=== PATIENT | male | born 1955 | race Caucasian/White ===

== ENCOUNTER 2023-08-31 06:09 | Inpatient (IN) | payer MEDICARE, OTHER, SELFPAY ==
[2023-08-31] VITALS (24 sets, daily range): BP systolic 98–164; BP diastolic 63–100; PULSE 67–107; RESP 12–23; TEMP 35.5–37.5; O2SAT 92–100; BMI 26.2
--- NOTE | 2023-08-31 06:17 | PC.NURSE ---
Call Stemi Alert at 0601. Call [facility] Ems at 0602. Nurse Elisa Ku at 0603. Katie Grover at 0603. Nat at 0611. Call Interventional Cardiology at 0605.
--- NOTE | 2023-08-31 06:18 | ECG_ITS ---
Measurements Intervals [place] Rate: 88 P: 72 MS: 152 QRS: 43 QRSD: 93 T: 55 QT: 396 QTc: 480 Interpretive Statements SINUS RHYTHM WITH OCCASIONAL VENTRICULAR PREMATURE COMPLEXES BASELINE ARTIFACT LOW QRS VOLTAGE IN PRECORDIAL LEADS [QRS DEFLECTION < 1.0 mV IN CHEST LEADS] BORDERLINE ECG NO PREVIOUS ECG AVAILABLE FOR COMPARISON Electronically Signed On 08-31-2023 16:22:16 DIP UNIT OPERATOR by Gorge Dennison M.D.
--- NOTE | 2023-08-31 06:19 | PC.NURSE ---
0618 4,000 units of heparin administered via IV push by this RN per Dr. Talbot verbal order.
--- NOTE | 2023-08-31 06:22 | ED.CHESTPAIN ---
HPI - Chest Pain General Chief Complaint: Chest Pain Stated Complaint: STEMI History of Present Illness HPI narrative: 68-year-old male with no previous cardiac history presenting to the emergency department for evaluation chest pain. Patient reports chest pain started about 3:00 a.m. he went to his neighbor's house at approximately 5:00 a.m. due to the pain and EMS was called to the neighbor's house. During transport EMS felt that the patient was having an acute STEMI so a code STEMI was called in the field. Patient was treated with aspirin nitro and Zofran. When patient was 1st picked up he is complaining of 8/10 chest pain. Upon arrival to the emergency department patient states his pain had resolved. Patient was still complaining of some nausea he was treated with additional Zofran. Related Data Home Medications Medication Instructions Recorded Confirmed ferrous sulfate 324 mg (65 mg 324 mg PO DAILY 08/31/23 08/31/23 iron) tablet,delayed release paroxetine HCl 30 mg tablet 30 mg PO DAILY 08/31/23 08/31/23 rivaroxaban 20 mg tablet 20 mg PO DAILY 08/31/23 08/31/23 Allergies Allergy/AdvReac Type Severity Reaction Status Date / Time No Known Allergies Allergy Unverified 05/14/19 15:02 Review of Systems Review of Systems: All systems reviewed & are unremarkable except as noted in HPI and below PMFSH Family History Family History Mother Family history of hypercholesterolemia Hypertension Family history of kidney disease Father Family history of lung cancer, Onset Age: 69 Social History Social History Smoking status: Never smoker Second hand tobacco smoke exposure: No Alcohol intake: never Substance use: current Substance use type: marijuana Do You Feel Safe in your Home?: Yes Lack of Transportation: No Lack of Food: Never True Current Housing: I Have Housing Concerned About Future Housing: No Difficulty Paying Gas/Electric Bills: No Difficulty Paying for Meds: No Currently Unemployed: No Education: Trade/Vocational Certificate Difficulty w/ Childcare or Family Care: No Spiritual care concerns: No Exam Narrative: APPEARANCE: Ill-appearing HEAD: normocephalic, atraumatic. EYES: PERRLA/EOMI, conjunctivae clear. NOSE: Normal no drainage EARS:TMS clear with good light reflex. THROAT: Pharynx clear, no exudate. NECK: Supple. No adenopathy, no masses. RESPIRATORY: Airway patent, respirations nonlabored. Clear to auscultation bilaterally, no rales, rhonchi, wheezing. CARDIOVASCULAR: Regular rate and rhythm without murmurs rubs or gallops. ABDOMINAL: Soft, nontender, nondistended, normal bowel sounds MUSCULOSKELETAL: Moves all extremities. Strength/ROM intact, No edema, No calf tenderness. NEURO: Alert. Cranial nerves II through XII intact. Grossly intact SKIN: Warm, dry. Normal Color Course Course Emergency Course: 68-year-old male presenting to emergency department for evaluation of chest pain. Field EKG and her EKG were shared with Cardiology, Dr De Dios. Cardiology ordered for those any use heparin and patient was prepped for the union laborer. Patient was updated on the results of the EKG and planned for the union laborer. Prior to transfer to the union laborer patient had a heart rate in the 70s that was sinus with occasional PVCs, blood pressure 120/65 and saturating at 98% on room air. Vital Signs Vital signs: Vital Signs Temperature 96 F L 08/31/23 06:07 Pulse Rate 92 08/31/23 06:07 Respiratory Rate 23 H 08/31/23 06:07 Blood Pressure 122/79 08/31/23 06:07 Pulse Oximetry 99 08/31/23 06:07 Oxygen Delivery Room Air 08/31/23 06:07 Temperature 98.5 F 09/01/23 07:57 Pulse Rate 77 09/01/23 08:48 Respiratory Rate 15 09/01/23 08:48 Blood Pressure 144/91 H 09/01/23 08:48 Pulse Oximetry 95 09/01/23 09:10 Oxygen Delivery Ro
[2023-08-31 06:28] LABS: Basophils Absolute Auto 0.1 K/mm3 (0.0-0.1); Basophils Percent Auto 0.3 % (0.2-1.2); Eosinophils Absolute Auto 0.4 K/mm3 (0-0.3); Eosinophils Percent Auto 2.7 % (0-4.4); Hematocrit 40.9 % (42.0-52.0); Hemoglobin 14.3 g/dL (14.0-18.0); Immature Granulocyte Absolute 0.05 K/mm3 (0.00-0.031); Immature Granulocyte Percent A 0.3 % (0-0.5); Lymphocytes Absolute Auto 6.88 K/mm3 (0.9-3.2); Lymphocytes Percent Auto 46.9 % (18.3-44.2); Mean Corpuscular Hemoglobin 33.2 pg (26-34); Mean Corpuscular Volume 94.9 fl (80-100); Mean Platelet Volume 10.5 fl (7.4-10.4); Monocytes Absolute Auto 1.3 K/mm3 (0.1-0.6); Monocytes Percent Auto 8.9 % (2.6-8.5); Neutrophils Percent Auto 40.9 % (45.5-73.1); Platelet Count Result 249 k/mm3 (150-375); Red Blood Count 4.31 M/mm3 (4.6-6.20); Red Cell Distribution Width 12.4 % (11.5-14.5); White Blood Count 14.7 K/mm3 (4.5-10.0)
[2023-08-31] MEDS: SODIUM CHLORIDE 0.9% IV 1,000 ML 999 ML IV CONT (06:30)
[2023-08-31 06:39] LABS: Prothrombin Time 14.1 Seconds (11.1-14.7)
[2023-08-31 06:40] LABS: Partial Thromboplastin Time 26.6 SECONDS (22.3-36.8)
--- NOTE | 2023-08-31 06:41 | PC.NURSE ---
0637 mill laborer RN's Elisa and Katie arrive at bedside, report given by this RN. pt left ED to the cook house laborer at 0640.
[2023-08-31 06:42] LABS: Alanine Aminotransferase 20 U/L (6-50); Albumin Level 4.1 g/dL (3.5-5.1); Alkaline Phosphatase 79 U/L (38-126); Anion Gap 13 mmol/L (8-16); Aspartate Amino Transferase 28 U/L (17-59); Bilirubin,Total 0.5 mg/dL (0.2-1.3); Blood Urea Nitrogen 18 mg/dL (9-20); Calcium 9.7 mg/dL (8.4-10.2); Carbon Dioxide 18 mmol/L (22-30); Chloride 108 mmol/L (98-107); Cholesterol 222 mg/dL (0-200); Estimated CRCL calculation 54 ml/min; Estimated Glomerular Filt Rate > 60; Glucose 212 mg/dL (65-110); HDL Direct 27 mg/dL; Sodium 139 mmol/L (137-145); Triglycerides 208 mg/dL (<150)
[2023-08-31 06:53] LABS: LDL Cholesterol Direct 156 mg/dL
[2023-08-31 06:56] LABS: Troponin I 0.025 ng/mL (0.000-0.034)
--- NOTE | 2023-08-31 07:44 | WPDMODSED ---
Moderate Sedation Note-Pt Data Patient Data Diagnosis: stemi Present Complaint: chest pain Procedure to be performed/Plan: coronary angio Allergies Allergy/AdvReac Type Severity Reaction Status Date / Time No Known Allergies Allergy Unverified 05/14/19 15:02 Home Medications Medication Instructions Recorded Confirmed Type simvastatin 20 mg tablet 20 mg PO DAILY #90 tabs 05/14/19 11/14/20 Rx diazepam 5 mg tablet 5 mg PO BID #7 tabs 11/14/20 11/14/20 Rx levothyroxine 75 mcg tablet 75 mcg PO DAILY #90 tabs 08/18/21 Rx pantoprazole 40 mg tablet,delayed See Rx Instructions .Route 10/12/21 Rx release .COMPLEX #90 tabs paroxetine HCl 20 mg tablet (Paxil) 20 mg PO DAILY #90 tabs 10/27/21 Rx naproxen 500 mg tablet 500 mg PO BID #180 tabs 02/22/22 Rx Sedation/Anesthesia: No previous sedation/anesthesia problems (including family history). [facility] Family History Family History Mother Family history of hypercholesterolemia Hypertension Family history of kidney disease Father Family history of lung cancer, Onset Age: 69 Social History Social History Smoking status: Never smoker Second hand tobacco smoke exposure: No Alcohol intake: never Mod Sed Physical Exam Physical Exam Pre Procedural Exam: Normal: Appearance, Eyes, Ears, Nose, Neck, Throat, Airway, Lungs, Heart Size, Heart Rate, Heart Rhythm, Neuro Exam, Abdomen, Liver, Kidneys, Spleen, Breasts, Genitalia, Extremities and Skin Hours since solid foods: 8 Hours since liquid intake: 8 Mallampati Classification: class 1 Internal Medicine - PN: Obj Da Vital Signs Vital Signs: Vital Signs - 24 hr 08/31/23 06:07 08/31/23 06:21 08/31/23 06:31 Temperature 35.5 C L Pulse Rate 92 74 Respiratory Rate 23 H Blood Pressure 122/79 Pulse Oximetry 99 100 Oxygen Delivery Room Air Room Air Labs 08/31/23 06:22 08/31/23 06:22 Labs: Laboratory Results - last 24 hr 08/31/23 06:22 WBC 14.7 H RBC 4.31 L Hgb 14.3 Hct 40.9 L MCV 94.9 MCH 33.2 MCHC 35.0 RDW 12.4 Plt Count 249 MPV 10.5 H Immature Gran % (Auto) 0.3 Neut % (Auto) 40.9 L Lymph % (Auto) 46.9 H [place] % (Auto) 8.9 H Eos % (Auto) 2.7 Baso % (Auto) 0.3 Lymph # (Auto) 6.88 H [place] # (Auto) 1.3 H Eos # (Auto) 0.4 H Baso # (Auto) 0.1 Abs Immat Gran (auto) 0.05 H Absolute Neuts (auto) 6.0 Absolute Nucleated RBC 0.0 Nucleated RBC % 0.0 PT 14.1 INR 1.0 APTT 26.6 Sodium 139 Potassium 3.0 L Chloride 108 H Carbon Dioxide 18 L Anion Gap 13 BUN 18 Creatinine 1.10 Estim Creat Clear Calc 54 Estimated GFR > 60 Glucose 212 H Calcium 9.7 Total Bilirubin 0.5 AST 28 ALT 20 Alkaline Phosphatase 79 Troponin I 0.025 Total Protein 7.0 Albumin 4.1 Triglycerides 208 H Cholesterol 222 H LDL Cholesterol Direct 156 HDL Direct 27 Blood Type A Positive Antibody Screen Negative ASA Classification/Sedation ASA Classification/Sedation ASA Class: I Emergent: No Risks: Risks, benefits and alternatives explained and patient/family accepted plan for sedation. Patient re-evaluated immediately prior to sedation.
--- NOTE | 2023-08-31 07:45 | WPDCARDPROC ---
Cardiac Cath Procedure Note Date of procedure:: 08/31/23 Performing physician:: Johnathan De Dios MD Indication:: Stemi Brief clinical history:: this 68-year-old patient with history of levothyroxine and will take Xarelto for thromboembolism presents here to the hospital chest pain that started 3:00 a.m.. Upon arrival to EMS EKG shows ST-elevation in lead 1 and aVL. some anterior elevation as well. Patient was shaking and feeling very cold. Denies shortness of breath, fever . Procedure Procedure performed:: 1-Moderate sedation that started at 7:02 a.m. and ended at 7:34 a.m. total duration 32 minutes using 2mg of Versed and 25mcg fentanyl. The registered nurse was myrna feldman 2-Selective left and right coronary angiogram. 3-Left heart catheterization with measurement of LVEDP and measurement of gradient across aortic valve. 4- LV angiogram. 5- deployment of drug eluting stent orsiro 2.75 x 18 covering mid diagonal branch. deployment done under 14 atmospheres corresponding to size 2.9 mm 4-Right common femoral arterial angiogram. 5-Deployment of 6 Swedish Angio-Seal. Sedation/Medication given:: Moderate sedation. Access site:: Right common femoral artery. Estimated blood loss:: 10cc Procedure note:: After informed consent patient was brought in to agricultural labor camp manager with the was draped and prepped in usual manner. Moderate sedation was given and the right groin was infiltrated using 1% lidocaine. Five Swedish sheath was obtained using micropuncture needle and the modified Seldinger technique. Selective left coronary angiogram was done using JL4 catheter with the tip of the catheter placed in the left main coronary artery. after that, 6 Swedish guide catheter CLS 3.5 was advanced and engaged the left main. Coronary wire minamo was advanced to distal diagonal branch and then balloon angioplasty done using 2.5 x 15 with 3 inflations each under normal pressure for 15 seconds. Then deployed drug-eluting stent orsiro2.75 x 18 and deployed in the mid diagonal branch under 14 atmospheres for 25 seconds. Selective right coronary angiogram was done using JR4 catheter with the tip of the catheter placed to the right coronary artery. After that 5 Swedish pigtail catheter was advanced across the aortic valve into the left ventricle with measurement of LVEDP and measurement of gradient across aortic valve. LV angiogram was done as well. Right common femoral arterial angiogram was done. Findings:: 1- left coronary artery is a large artery that divides into large LAD, large circumflex artery. Left main is Minimal irregularities. 2- left anterior descending artery is a large artery that runs and wraps around the apex. proximal lesion about 30%. Large diagonal branch with mid 99%. 3- leftcircumflex artery is a large artery . Has minimal irregularities and before bifurcation with large OM1 there is about 30%. 4- right coronary artery is Large artery and dominant with diffuse minimal irregularities. 5- LVEDP was 15 Mm Hgand no gradient across aortic valve. 6- LV angiogram shows wall motion abnormality involving the anterior, anterolateral, apical inferior dsouza, ejection fraction 35%. 6- opening arterial pressure was 160/80 and closing pressure was 145/96 7- right femoral artery angiogram shows no significant disease in the right common femoral artery. Conclusion:: - high-grade stenosis diagonal branch status post stenting. Assessment and Plan Assessment and plan (1) STEMI (ST elevation myocardial infarction): Code(s): I21.3 - ST elevation (STEMI) myocardial infarction of unspecified site Status: Acute Plan continue aspirin and Brilinta. - aggressive risk factor modification for CAD - lipid panel and screening for diabetes
--- NOTE | 2023-08-31 07:52 | PM.IMHP ---
H&P: HPI History of Present Illness Date/Time: 08/31/23 07:52 Chief Complaint: chest pain Narrative: 68-year-old patient with history of hypothyroidism, thromboembolism on Xarelto, depression, hyperlipidemia who presents the hospital with chest pain that started at 3:00 a.m.. Upon arrival EMS EKG showed ST-elevation involving leads 1 and [address]VL and some ST elevation in anterior leads as well. Denies shortness of breath. Review of Systems Review of Systems: All systems reviewed & are unremarkable except as noted in HPI and below Constitutional: Constitutional: Denies chills, Denies fatigue, Denies fever(s), Denies headache(s) and Denies snoring Eyes: Eyes: Denies eye discharge and Denies loss of vision ENT: Denies dizziness, Denies headache(s), Denies nasal discharge and Denies sore throat Cardiovascular: Cardiovascular: Reports as per HPI, Reports chest pain, Denies syncope, Denies rapid heart rate, Denies leg edema, Denies dyspnea, Denies dyspnea on exertion, Denies orthopnea and Denies paroxysmal nocturnal dyspnea Respiratory: Respiratory: Denies chest congestion, Denies cough, Denies dyspnea, Denies dyspnea on exertion, Denies snoring and Denies wheezing Gastrointestinal: Gastrointestinal: Denies abdominal pain, Denies diarrhea, Denies nausea and Denies vomiting Genitourinary: Genitourinary: Denies hematuria, Denies dysuria, Denies flank pain and Denies urinary frequency Musculoskeletal: Musculoskeletal: Denies myalgias, Denies arthralgias and Denies joint swelling Neurologic: Denies Abnormal speech present, Denies dizziness, Denies syncope, Denies headache(s), Denies focal weakness and Denies loss of vision Psychiatric: Psychiatric: Denies anxiety and Denies depression Endocrine: Endocrine: Denies cold intolerance, Denies fatigue and Denies heat intolerance Hematologic/Lymphatic: Hematologic/Lymphatic: Denies easy bleeding and Denies easy bruising Allergic/Immunologic: Allergic/Immunologic: Denies urticaria and Denies wheezing PMFSH Family History Family History Mother Family history of hypercholesterolemia Hypertension Family history of kidney disease Father Family history of lung cancer, Onset Age: 69 Social History Social History Smoking status: Never smoker Second hand tobacco smoke exposure: No Alcohol intake: never Meds Home Medications and Allergies Home Medications Medication Instructions Recorded Confirmed Type simvastatin 20 mg tablet 20 mg PO DAILY #90 tabs 05/14/19 11/14/20 Rx diazepam 5 mg tablet 5 mg PO BID #7 tabs 11/14/20 11/14/20 Rx levothyroxine 75 mcg tablet 75 mcg PO DAILY #90 tabs 08/18/21 Rx pantoprazole 40 mg tablet,delayed See Rx Instructions .Route 10/12/21 Rx release .COMPLEX #90 tabs paroxetine HCl 20 mg tablet (Paxil) 20 mg PO DAILY #90 tabs 10/27/21 Rx naproxen 500 mg tablet 500 mg PO BID #180 tabs 02/22/22 Rx Allergies Allergy/AdvReac Type Severity Reaction Status Date / Time No Known Allergies Allergy Unverified 05/14/19 15:02 Vital Signs Vital Signs - 24 hr 08/31/23 06:07 08/31/23 06:21 08/31/23 06:31 Temperature 35.5 C L Pulse Rate 92 74 Respiratory Rate 23 H Blood Pressure 122/79 Pulse Oximetry 99 100 Oxygen Delivery Room Air Room Air Exam Const: General: cooperative, healthy appearing, comfortable, no acute distress, well developed and well nourished Nutritional Appearance: well nourished Orientation/consciousness: patient oriented x3 HENMT: Head: normal to inspection, normocephalic and atraumatic Ears: hearing grossly normal bilaterally and external ears normal Face/Nose/Sinus: Normal external nose present, Normal nares present, normal facial exam and No erythema Face and sinus: normal facial exam and no erythema Mouth: Yes moist mucous membranes and No lip abnormal Throat: uvula midline Eyes:
--- NOTE | 2023-08-31 08:07 | ECG_ITS ---
Measurements Intervals [place] Rate: 77 P: 74 DE: 151 QRS: 38 QRSD: 94 T: 68 QT: 395 QTc: 447 Interpretive Statements SINUS RHYTHM BASELINE ARTIFACT LOW QRS VOLTAGE IN EXTREMITY LEADS [QRS DEFLECTION < 0.5 mV IN LIMB LEADS] BORDERLINE ECG COMPARED TO ECG 08/31/2023 06:12:04 NO SIGNIFICANT CHANGES Electronically Signed On 08-31-2023 16:24:36 EMPLOYMENT COUNSELOR by Gorge Dennison M.D.
--- NOTE | 2023-08-31 08:07 | ECHO_ITS ---
Patient Info Name: Chinedu Atkins Age: 68 years : 1955 Gender: Male Ht: 68 in Wt: 172 lbs BSA: 1.95 m2 HR: 111 bpm BP: 160 / 91 mmHg Technical Quality: Fair Exam Date: 08/31/2023 2:30 PM Exam Location: Echo Lab Patient Status: Inpatient Admit Date: 08/31/2023 Staff Ordering Physician: Johnathan De Dios MD Supervising Deputy: Azra Machado RDCS Attending Provider: Johnathan De Dios MD Referring Physician: Judd Talbot MD; Exam Type: CA echo doppler color flow Study Info Complete two-dimensional, color flow and Doppler transthoracic echocardiogram is performed. Summary 1. Technically difficult study. Patient declined Definity. 2. Left ventricular chamber dimension is normal. 3. Left ventricular systolic function is moderately reduced, estimated at 35-40%. 4. There is hypokinesis of the mid inferolateral wall, mid anteroseptum, mid inferoseptum, mid anterolateral wall. The apex appears akinetic. 5. The left ventricular diastolic function is grade I diastolic dysfunction. 6. Right ventricular systolic function is normal. Left Ventricle There is hypokinesis of the mid inferolateral wall, mid anteroseptum, mid inferoseptum, mid anterolateral wall. The apex appears akinetic. Left ventricular chamber dimension is normal. Left ventricular systolic function is moderately reduced, estimated at 35-40%. There is no increased left ventricular wall thickness. The left ventricular diastolic function is grade I diastolic dysfunction. Right Ventricle Right ventricular chamber dimension is normal. Right ventricular systolic function is normal. Left Atria Left atrial chamber dimension is normal. Right Atria Right atrial chamber dimension is normal. Atrial Septum Intact interatrial septum visualized by color flow imaging. Aortic Valve The aortic valve is not well visualized. There is no aortic valve stenosis. There is no aortic valve regurgitation. Pulmonic Valve The pulmonic valve is not well visualized. Mitral Valve There is trace mitral valve regurgitation. The mitral valve annulus is mildly calcified. Tricuspid Valve There is trace tricuspid valve regurgitation. Pericardium/Pleural There is no pericardial effusion. Inferior Vena Cava Normal inferior vena cava with >50% collapse upon inspiration consistent with normal right atrial pressure, 3 mmHg. Aorta The aortic root size at the sinus of Valsalva is normal. Left Ventricular Outflow Tract Name Value Normal LVOT 2D LVOT Diameter 2.0 cm LVOT Doppler LVOT Peak Gradient 6 mmHg LVOT Mean Gradient 3 mmHg LVOT VTI 21 cm LVOT VTI/AV VTI Ratio 1.0 LVOT Stroke Volume 62 ml LVOT CO 5.8 l/min LVOT CI 3.0 l/min/m2 Pulmonic Valve Name Value Normal RVOT Doppler RVOT Peak Gradient
[2023-08-31] MEDS: methylPREDNISolone SOD SUCC 125 MG VIAL IV PUSH (08:19)
--- NOTE | 2023-08-31 08:20 | WPDCNINT ---
Assessment and Plan Assessment and plan (1) STEMI (ST elevation myocardial infarction): Code(s): I21.3 - ST elevation (STEMI) myocardial infarction of unspecified site Status: Acute Assessment and Plan: 08/31: Patient presented with chest pain, 8/10 intensity, EMS was called and upon their arrival EKG reviewed STEMI, a code STEMI was called. Patient was given aspirin, nitroglycerin and Zofran -patient was taken to the clinical lab assistant where he was found to have a 99% occlusion of his diagonal branch of the LAD, status post PTCA/PCI with SRAVANTHI x1 the diagonal branch. LV gram showed an EF of 35% with wall motion abnormalities involving anterior, anterolateral, apical inferior dsouza -cardiology following the patient closely has been started on aspirin, Brilinta -start atorvastatin (2) Hypothyroidism (acquired): Code(s): E03.9 - Hypothyroidism, unspecified Status: Acute Assessment and Plan: Continue levothyroxine (3) Hyperlipidemia LDL goal <130: Code(s): E78.5 - Hyperlipidemia, unspecified Status: Acute Assessment and Plan: Will add statin (4) Current moderate episode of major depressive disorder without prior episode: Code(s): F32.1 - Major depressive disorder, single episode, moderate Status: Acute Assessment and Plan: Continue home Paxil (5) Thromboembolism: Code(s): I74.9 - Embolism and thrombosis of unspecified artery Status: Acute Assessment and Plan: Hold Xarelto for now, will restart when okay with Cardiology Plan DVT prophylaxis: Status post cardiac catheterization Stress ulcer prophylaxis: Protonix, home medication Nutrition: Heart healthy diet Code Status: Full code Critical Care Time Spent: 43 minutes Due to a high probability of clinically significant, life threatening deterioration, the patient required my highest level of preparedness to intervene emergently and I personally spent this critical care time directly and personally managing the patient. This critical care time included obtaining a history; examining the patient; pulse oximetry; ordering and review of studies; arranging urgent treatment with development of a management plan; evaluation of patient's response to treatment; frequent reassessment; and discussions with other providers. It was exclusive of separately billable procedures and treating other patients and teaching time. Please see Assessment and Plan section and the rest of the note for further information on patient assessment and treatment This dictation may have been done utilizing a voice recognition system. Attempts have been made to correct errors. However, there may be uncorrected grammatical, spelling, and recognitions errors present. Net Technical Architect Consult Note Consult date: 08/31/23 Reason for consult: STEMI status post PTCA/PCI with SRAVANTHI x1 to diagonal branch, EF 35% HPI: Chinedu Atkins is a 68 year old male history of depression, hypothyroidism, hyperlipidemia, history, thromboembolism on Xarelto, TIA GERD, Hira's thyroiditis, cervical spine surgery x2, MGUS (monoclonal gammopathy of unknown significance) presented the ED early this morning with complains of chest pain along with nausea. Upon EMS arrival EKG was seen to have acute STEMI, code STEMI was called in the field. Patient was treated with nitroglycerin, aspirin and Zofran. Upon arrival to the ER chest pain had resolved. Patient was taken to cardiac clinical lab assistant where he was found to have a 99% occlusion of the diagonal branch of the LAD. Status post PTCA/PCI with SRAVANTHI x1 to diagonal branch. LV gram showed an EF of 35% with wall motion abnormalities involving anterior, anterolateral, apical inferior dsouza. Patient was transferred to the ICU for further management Patient seen and examined in the ICU upon arrival. Patient is awake, alert, oriented. He is shivering and states he is feeling cold and requests for additional blankets. Patient continu
[2023-08-31] MEDS: SODIUM CHLORIDE 0.9% IV 1,000 ML 125 ML IV CONT (08:22)
--- NOTE | 2023-08-31 08:32 | ADMGEN ---
This patient, Chinedu Atkins, was admitted to Intensive Care Unit-4. Patient/family oriented to hospital policies and general routines including ID bracelet, bed and alarms, visiting hours, pain management, procedures, bathroom and other care routines, personal items, smoking policy, room service/diet, and visiting hours. Information on how to activate the Rapid Response Team has been discussed. Patient/Family are encouraged to report perceived risks to care and to ask questions if they do not understand what they are told or what they should do.
[2023-08-31 08:58] LABS: Cholesterol 225 mg/dL (0-200); HDL Direct 31 mg/dL; Triglycerides 101 mg/dL (<150)
[2023-08-31 09:09] LABS: LDL Cholesterol Direct 162 mg/dL
[2023-08-31 09:13] LABS: Troponin I 0.458 ng/mL (0.000-0.034)
[2023-08-31 09:26] LABS: Hemoglobin A1C 5.9 % (<5.7)
[2023-08-31 10:44] LABS: MRSA (PCR) NOT DETECTED (NOT DETECTE)
[2023-08-31] MEDS: PANTOPRAZOLE 40 MG TABLET PO (12:00)
[2023-08-31] MEDS: ATORVASTATIN 40 MG TABLET 80 MG PO (12:00)
[2023-08-31] MEDS: PARoxetine 10 MG TABLET 30 MG PO (12:00)
[2023-08-31] MEDS: POTASSIUM CHLORIDE 20 MEQ ER TABLET 40 MEQ PO (12:01)
[2023-08-31] MEDS: POTASSIUM CHLORIDE 20 MEQ ER TABLET PO (12:01)
--- NOTE | 2023-08-31 12:08 | PCDIET ---
Spoke with patient today regarding diet orders for lunch. He is asking for diet supplements of Glucerna shakes. Chipper Machine Operator gave orders for diet supplements of Glucerna shakes BID. No further nutritional interventions needed at this time.
--- NOTE | 2023-08-31 12:12 | PM.PNCARD ---
Progress Note: A&P Assessment and Plan (1) STEMI (ST elevation myocardial infarction): Code(s): I21.3 - ST elevation (STEMI) myocardial infarction of unspecified site Status: Acute Assessment and Plan: High-grade stenosis involving large diagonal branch treated with 2.75 x 18 SRAVANTHI and deployment under 2.9 mm. Ejection fraction on LV angiogram 35%. Continue Aspirin and Brilinta. Will do triple therapy for 1 month, followed by single antiplatelet therapy + NOAC. Patient to follow up with his primary jordan worker after hospital discharge. - High intensity statin. - Echocardiogram ordered and pending. (2) Hyperlipidemia LDL goal <130: Code(s): E78.5 - Hyperlipidemia, unspecified Status: Acute Assessment and Plan: Continue high-intensity statin (3) Hypothyroidism (acquired): Code(s): E03.9 - Hypothyroidism, unspecified Status: Acute Assessment and Plan: On Levothyroxine. TSH level is normal. 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 Plan Recommendations and plan discussed with Schedule Planning Manager, Dr. Skelton. Subjective Date/time seen: 08/31/23 12:12 Interval history: Reason for visit: STEMI HPI: 68-year-old patient with history of hypothyroidism, thromboembolism on Xarelto, depression, hyperlipidemia who presents the hospital with chest pain that started at 3:00 a.m..? Upon arrival EMS EKG showed ST-elevation involving leads 1 and [address] and some ST elevation in anterior leads as well.? Denies shortness of breath. Date of service 08/31: Feeling well this morning. No chest pain. Otherwise doing well. Exam Const: General: comfortable and no acute distress HENMT: Mouth: Yes moist mucous membranes Eyes: General: appearance normal, both eyes and all related structures Sclera: sclerae normal Resp: Effort & Inspection: normal respiratory effort Cardio: Rate: regular rate Rhythm: regular rhythm Skin: General skin exam: normal color Neuro: Speech: normal speech Psych: Mental Status: mental status grossly normal Affect: normal affect Objective Data Vital Signs Vital Signs: Vital Signs - 24 hr 08/31/23 06:07 08/31/23 06:21 08/31/23 06:31 Temperature 35.5 C L Pulse Rate 92 74 Respiratory Rate 23 H Blood Pressure 122/79 Pulse Oximetry 99 100 Oxygen Delivery Room Air Room Air 08/31/23 08:07 08/31/23 08:22 08/31/23 08:37 Temperature 36.6 C Pulse Rate 71 76 72 Respiratory Rate 15 19 18 Blood Pressure 149/91 H 140/97 H 143/91 H Pulse Oximetry 100 99 98 Oxygen Delivery 08/31/23 08:08 08/31/23 08:52 08/31/23 09:07 Temperature 36.7 C 36.7 C Pulse Rate 68 75 Respiratory Rate 15 22 H Blood Pressure 149/92 H 149/92 H Pulse Oximetry 100 99 100 Oxygen Delivery Room Air 08/31/23 09:37 08/31/23 10:00 08/31/23 10:30 Temperature 36.5 C 36.6 C Pulse Rate 67 75 78 Respiratory Rate 16 17 Blood Pressure 145/91 H 156/93 H Pulse Oximetry 99 96 Oxygen Delivery 08/31/23 11:30 Temperature 37.0 C Pulse Rate 85 Respiratory Rate 15 Blood Pressure 136/81 Pulse Oximetry 96 Oxygen Delivery Intake/Output Intake/Output: Intake & Output 08/28/23 08/29/23 08/30/23 08/31/23 23:59 23:59 23:59 23:59 Output Total 400 Balance -400 Meds/Results Medications: Active Medications Generic Name Dose Route Start Last Admin Trade Name Freq PRN Reason Stop Dose Admin Al Hydrox/Mg Hydrox/Simethicone 30 ml 08/31/23 08:07 Mag Hydrox/Al Hydrox/Simeth 30 Ml Udc PO Q4H PRN Indigestion Aspirin 81 mg 09/01/23 09:00 Aspirin 81 Mg Enteric Tablet PO QAM LEDA Atorvastatin Calcium 80 mg 08/31/23 09:00 08/31/23 12:00 Atorvastatin 40 Mg Tablet PO 80 mg DAILY LEDA Administration Sodium Chloride 1,000 mls @ 125 mls/hr
[2023-08-31 16:25] LABS: Anion Gap 8 mmol/L (8-16); Blood Urea Nitrogen 15 mg/dL (9-20); Calcium 9.3 mg/dL (8.4-10.2); Carbon Dioxide 22 mmol/L (22-30); Chloride 111 mmol/L (98-107); Estimated CRCL calculation 65 ml/min; Estimated Glomerular Filt Rate > 60; Glucose 167 mg/dL (65-110); Potassium 4.2 mmol/L (3.4-5.0); Sodium 141 mmol/L (137-145)
[2023-08-31] MEDS: METOPROLOL SUCCINATE EXT REL 25 MG TABCR PO (16:49)
[2023-08-31] MEDS: LOSARTAN POTASSIUM 25 MG TABLET PO (16:49)
[2023-08-31] MEDS: ONDANSETRON HCL ODT 4 MG TABLET PO (19:20)
[2023-08-31] MEDS: TICAGRELOR 90 MG TABLET PO (21:08)
[2023-09-01] VITALS (11 sets, daily range): BP systolic 96–144; BP diastolic 58–91; PULSE 61–82; RESP 15–18; TEMP 36.9–37; O2SAT 91–99
[2023-09-01 04:08] LABS: Basophils Percent Auto 0.1 % (0.2-1.2); Hematocrit 40.1 % (42.0-52.0); Hemoglobin 13.2 g/dL (14.0-18.0); Immature Granulocyte Absolute 0.14 K/mm3 (0.00-0.031); Immature Granulocyte Percent A 0.7 % (0-0.5); Lymphocytes Absolute Auto 2.35 K/mm3 (0.9-3.2); Lymphocytes Percent Auto 10.9 % (18.3-44.2); Mean Corpuscular HGB Conc 32.9 g/dl (32-36); Mean Corpuscular Hemoglobin 32.7 pg (26-34); Mean Corpuscular Volume 99.3 fl (80-100); Mean Platelet Volume 10.5 fl (7.4-10.4); Monocytes Absolute Auto 1.9 K/mm3 (0.1-0.6); Neutrophils Absolute Auto 17.1 K/mm3 (1.3-6.7); Neutrophils Percent Auto 79.3 % (45.5-73.1); Platelet Count Result 209 k/mm3 (150-375); Red Blood Count 4.04 M/mm3 (4.6-6.20); Red Cell Distribution Width 12.9 % (11.5-14.5); White Blood Count 21.5 K/mm3 (4.5-10.0)
[2023-09-01 04:19] LABS: Anion Gap 7 mmol/L (8-16); Blood Urea Nitrogen 13 mg/dL (9-20); Calcium 9.4 mg/dL (8.4-10.2); Carbon Dioxide 21 mmol/L (22-30); Chloride 111 mmol/L (98-107); Estimated CRCL calculation 72 ml/min; Estimated Glomerular Filt Rate > 60; Glucose 125 mg/dL (65-110); Magnesium 2.4 mg/dL (1.6-2.3); Phosphorus 3.2 mg/dL (2.5-4.5); Potassium 4.2 mmol/L (3.4-5.0); Sodium 139 mmol/L (137-145)
[2023-09-01] MEDS: LEVOTHYROXINE SODIUM 75 MCG TABLET PO (06:00)
--- NOTE | 2023-09-01 07:43 | WPDINTPN ---
Progress Note: A&P Assessment and Plan (1) STEMI (ST elevation myocardial infarction): Qualifiers: Involved coronary artery: LAD coronary artery Qualified Code(s): I21.02 - ST elevation (STEMI) myocardial infarction involving left anterior descending coronary artery Code(s): I21.3 - ST elevation (STEMI) myocardial infarction of unspecified site Status: Acute Assessment and Plan: 08/31: Patient presented with chest pain, 8/10 intensity, EMS was called and upon their arrival EKG reviewed STEMI, a code STEMI was called. Patient was given aspirin, nitroglycerin and Zofran -patient was taken to the earthmoving labourer where he was found to have a 99% occlusion of his diagonal branch of the LAD, status post PTCA/PCI with SRAVANTHI x1 the diagonal branch. LV gram showed an EF of 35% with wall motion abnormalities involving anterior, anterolateral, apical inferior dsouza -cardiology following the patient -continue aspirin, atorvastatin, losartan, metoprolol, Brilinta 08/31/2023: Echocardiogram Summary ? 1. Technically difficult study. Patient declined Definity. ? 2. Left ventricular chamber dimension is normal. ? 3. Left ventricular systolic function is moderately reduced, estimated at 35-40%. ? 4. There is hypokinesis of the mid inferolateral wall, mid anteroseptum, mid inferoseptum, mid anterolateral wall. The apex appears akinetic. ? 5. The left ventricular diastolic function is grade I diastolic dysfunction. ? 6. Right ventricular systolic function is normal. (2) Hypothyroidism (acquired): Code(s): E03.9 - Hypothyroidism, unspecified Status: Acute Assessment and Plan: Continue levothyroxine (3) Hyperlipidemia LDL goal <130: Code(s): E78.5 - Hyperlipidemia, unspecified Status: Acute Assessment and Plan: Continue statin (4) Current moderate episode of major depressive disorder without prior episode: Code(s): F32.1 - Major depressive disorder, single episode, moderate Status: Acute Assessment and Plan: Continue home Paxil (5) Thromboembolism: Code(s): I74.9 - Embolism and thrombosis of unspecified artery Status: Acute Assessment and Plan: Hold Xarelto for now, will restart when okay with Cardiology Plan DVT prophylaxis: Status post cardiac catheterization, patient on Xarelto at home, will discuss with Cardiology regarding restarting Stress ulcer prophylaxis: Protonix, home medication Nutrition: Heart healthy diet Code Status: Full code Critical Care Time Spent: 31 minutes Patient may transfer out of the ICU Due to a high probability of clinically significant, life threatening deterioration, the patient required my highest level of preparedness to intervene emergently and I personally spent this critical care time directly and personally managing the patient. This critical care time included obtaining a history; examining the patient; pulse oximetry; ordering and review of studies; arranging urgent treatment with development of a management plan; evaluation of patient's response to treatment; frequent reassessment; and discussions with other providers. It was exclusive of separately billable procedures and treating other patients and teaching time. Please see Assessment and Plan section and the rest of the note for further information on patient assessment and treatment This dictation may have been done utilizing a voice recognition system. Attempts have been made to correct errors. However, there may be uncorrected grammatical, spelling, and recognitions errors present. Subjective Date/time seen: 09/01/23 07:43 Interval history: Reason for consult: STEMI status post PTCA/PCI with SRAVANTHI x1 to diagonal branch, EF 35% HPI: 68-year-old patient with history of hypothyroidism, thromboembolism on Xarelto, depression, hyperlipidemia who presents the hospital with chest pain that started at 3:00 a.m..? Upon arrival EMS EKG showed ST-elevation involvi
[2023-09-01] MEDS: LOSARTAN POTASSIUM 25 MG TABLET PO (08:06)
[2023-09-01] MEDS: METOPROLOL SUCCINATE EXT REL 25 MG TABCR PO (08:06)
[2023-09-01] MEDS: ATORVASTATIN 40 MG TABLET 80 MG PO (08:06)
[2023-09-01] MEDS: ASPIRIN 81 MG ENTERIC TABLET PO (08:06)
[2023-09-01] MEDS: TICAGRELOR 90 MG TABLET PO (08:07)
[2023-09-01] MEDS: PARoxetine 10 MG TABLET 30 MG PO (08:07)
[2023-09-01] MEDS: PANTOPRAZOLE 40 MG TABLET PO (08:07)
[2023-09-01] MEDS: NITROGLYCERIN SL 0.4 MG TABLET SUBLINGUAL (08:48)
--- NOTE | 2023-09-01 09:29 | PM.DS ---
DS: Admitting Diagnosis Discharge Date 09/01/2023 Admitting Diagnosis STEMI DS: Discharge Diagnosis Discharge Diagnosis (1) STEMI (ST elevation myocardial infarction): Qualifiers: Involved coronary artery: LAD coronary artery Qualified Code(s): I21.02 - ST elevation (STEMI) myocardial infarction involving left anterior descending coronary artery Code(s): I21.3 - ST elevation (STEMI) myocardial infarction of unspecified site Status: Acute (2) Cardiomyopathy: Code(s): I42.9 - Cardiomyopathy, unspecified Status: Acute DS: Summary Hospital Course Reason for hospitalization: STEMI Hospital Course: 68-year-old patient with history of hypothyroidism, thromboembolism on Xarelto, depression, hyperlipidemia who presented to the hospital with chest pain that started at 3:00 a.m on 08/31.? Upon arrival EMS EKG showed ST-elevation involving leads 1 and aVL and some ST elevation in anterior leads as well.? Taken for emergent cardiac cath, which showed high-grade stenosis involving large diagonal branch that was treated with 2.75 x 18mm SRAVANTHI and deployment under 2.9 mm. Ejection fraction on LV angiogram 35%. Echocardiogram shows LVEF 35-40%, hypokinesis of the mid inferolateral wall, mid anteroseptum, mid inferoseptum, mid anterolateral wall, akinesis of apex, grade 1 diastolic dysfunction. Patient did well after PCI. Continue Aspirin and Brilinta. Recommend triple therapy for 1 month, followed by P2Y12 inhibitor + NOAC. Patient to follow up with his primary stamp collector after hospital discharge. Patient was given CDs of both his cath films and his echo images. Patient also started on high intensity statin. Given the cardiomyopathy, he was started on Losartan and Metoprolol. Further optimization of GDMT to be done as outpatient. Status at Discharge Functional status at discharge: independent ambulation Overall status at discharge: patient is back to baseline Time Spent with Patient Time attestation: Total time spent providing and/or coordinating discharge services: Exam Const: General: comfortable and no acute distress HENMT: Mouth: Yes moist mucous membranes Eyes: General: appearance normal, both eyes and all related structures Sclera: sclerae normal Neck: Neck: supple Resp: Effort & Inspection: normal respiratory effort Cardio: Rate: regular rate Rhythm: regular rhythm Skin: General skin exam: normal color Psych: Mental Status: mental status grossly normal Affect: normal affect DS: Data Data Completed and Pending Labs on day of discharge: Labs from last 24 hours 09/01/23 08/31/23 08/31/23 03:46 16:05 11:58 WBC 21.5 H RBC 4.04 L Hgb 13.2 L Hct 40.1 L MCV 99.3 MCH 32.7 MCHC 32.9 RDW 12.9 Plt Count 209 MPV 10.5 H Immature Gran % (Auto) 0.7 H Neut % (Auto) 79.3 H Lymph % (Auto) 10.9 L Graves % (Auto) 9.0 H Eos % (Auto) 0.0 Baso % (Auto) 0.1 L Lymph # (Auto) 2.35 Graves # (Auto) 1.9 H Eos # (Auto) 0.0 Baso # (Auto) 0.0 Abs Immat Gran (auto) 0.14 H Absolute Neuts (auto) 17.1 H Absolute Nucleated RBC 0.0 Nucleated RBC % 0.0 Sodium 139 141 Potassium 4.2 4.2 Chloride 111 H 111 H Carbon Dioxide 21 L 22 Anion Gap 7 L 8 BUN 13 15 Creatinine 0.80 0.90 Estim Creat Clear Calc 72 65 Estimated GFR > 60 > 60 Glucose 125 H 167 H Calcium 9.4 9.3 Phosphorus 3.2 Magnesium 2.4 H Troponin I 3.260 H* D TSH (Reflex) Nasal MRSA (PCR) 08/31/23 08/31/23 09:21 08:37 WBC RBC Hgb Hct MCV MCH MCHC RDW Plt Count MPV Immature Gran % (Auto) Neut % (Auto) Lymph % (Auto) Graves % (Auto) Eos % (Auto) Baso % (Auto) Lymph # (Auto) Graves # (Auto) Eos # (Auto) Baso # (Auto) Abs Immat Gran (auto) Absolute Neuts (auto) Absolute Nucleated RBC Nucleated RBC % Sodium Potassium Chloride Carbon Dioxide Anion Gap
== END 2023-09-01 10:00 | disposition home or self-care (01) | DRG 322 ==
LOC: ANHED 06:20 → ANHICU 06:22
PROVIDERS: Internal Medicine; Admitting Provider Internal Medicine Cardiovascular Disease; Emergency Provider Emergency Medicine; Referring Provider Emergency Medicine; Visit Provider Internal Medicine
PROC: 4A023N7 Measurement of Cardiac Sampling and Pressure, Left Heart, Percutaneous Approach (ICD-10-PCS; CPT 93452; principal; 2023-08-31 06:25)
PROC: 027034Z Dilation of Coronary Artery, One Artery with Drug-eluting Intraluminal Device, Percutaneous Approach (ICD-10-PCS; 2023-08-31 06:25)
PROC: 027034Z Dilation of Coronary Artery, One Artery with Drug-eluting Intraluminal Device, Percutaneous Approach (ICD-10-PCS; 2023-08-31 06:25)
DX: I21.3 ST elevation (STEMI) myocardial infarction of unspecified site (principal); F32.1 Major depressive disorder, single episode, moderate; I42.9 Cardiomyopathy, unspecified; E03.9 Hypothyroidism, unspecified; E78.5 Hyperlipidemia, unspecified; K21.9 Gastro-esophageal reflux disease without esophagitis; Z86.718 Personal history of other venous thrombosis and embolism; Z79.01 Long term (current) use of anticoagulants; Z86.73 Personal history of transient ischemic attack (TIA), and cerebral infarction without residual deficits
CPT/HCPCS: 36415; 80048; 80053; 80061; 83036; 83735; 84100; 84443; 84484; 85025; 85610; 85730; 86850; 86900; 86901; 87641; 93005; 93306; 93458; 99285; A9270; C1725; C1760; C1769; C1784; C1887; C1894; C9606; G0269; J0583; J1644; J2250; J2930; J3010; J7030; J7040